=== PATIENT | male | born 1995 | race Hispanic/Latino ===

== ENCOUNTER 2016-09-20 23:16 | Emergency (ER) | payer OTHER ==
[2016-09-20 23:38] VITALS: BP 107/68; PULSE 80; RESP 16; TEMP 98.1; O2SAT 99
--- NOTE | 2016-09-21 00:04 | C.PDOC ---
History Of Present Illness 20 year old patient presents to the ED complaining of anxiety for the past couple of months. Patient reports he's had racing thoughts for the past few days. He is unable to sleep and is constantly feeling anxious. He is stressed out about work. Patient admits to marijuana use and recently he has been using it more. Patient denies suicidal ideation, homicidal ideation, other drug use, alcohol use, or depression. Patient was seen at [facility] [place] [facility] earlier today. He states he spoke to a few different people. He was discharged without any medication and instructed to follow up with out patient counseling. Patient is requesting medication to help his anxiety and for sleep. Time Seen by Provider: 09/20/16 23:51 Chief Complaint (Nursing): Psychiatric Evaluation History Per: Patient History/Exam Limitations: no limitations Onset/Duration Of Symptoms: Worse Since (few days), Other (couple of months) Current Symptoms Are (Timing): Still Present Suicide/Self Injury Attempted (Context): None Modifying Factor(s): Marijuana Severity: None Pain Scale Rating Of: 0 Associated Symptoms: Anxiety, Other (racing thoughts) Past Medical History Reviewed: Historical Data, Nursing Documentation, Vital Signs Vital Signs: Last Vital Signs Temp 98.1 F 09/20/16 23:31 Pulse 80 09/20/16 23:31 Resp 16 09/20/16 23:31 BP 107/68 09/20/16 23:31 Pulse Ox 99 09/21/16 01:48 Family History: States: Unknown Family Hx - Social History Hx Alcohol Use: Yes Hx Substance Use: Yes - Immunization History Hx Influenza Vaccination: No Hx Pneumococcal Vaccination: No Review Of Systems Except As Marked, All Systems Reviewed And Found Negative. Psych: Positive for: Anxiety. Negative for: Depression, Suicidal ideation, Other (homicidal ideation) Physical Exam - Physical Exam Appears: Agitated, Other (anxious, pacing around) Skin: Warm, Dry Head: Atraumatic, Normacephalic Neck: Normal ROM, Supple Chest: Symmetrical Cardiovascular: Rhythm Regular Respiratory: Normal Breath Sounds, No Rales, No Rhonchi, No Wheezing Neurological/Psych: Oriented x3 Gait: Steady ED Course And Treatment O2 Sat by Pulse Oximetry: 99 (room air) Pulse Ox Interpretation: Normal Medical Decision Making Medical Decision Making: Impression: 20 y/o male with anxiety Plan: * Atarax Progress: Crisis evaluation was offered, but patient refused. Advise patient to follow up with outpatient psych and may need medications or group therapy. Patient has family at bedside and is stable for discharge Disposition Counseled Patient/Family Regarding: Diagnosis, Need For Followup, Rx Given - Disposition Disposition: HOME/ ROUTINE Disposition Time: 00:03 Condition: STABLE Additional Instructions: You can take medication 1-2 pills every 6 hours as needed Please [facility] with [facility] at [address] [place] [address]. Please call [phone] or ext [phone] to arrange appointment. 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 - Scribe Statement The provider has reviewed the documentation as recorded by the Scribe Flavia Barfield All medical record entries made by the Scribe were at my direction and personally dictated by me. I have reviewed the chart and agree that the record accurately reflects my personal performance of the history, physical exam, medical decision making, and the department course for this patient. I have also personally directed, reviewed, and agree with the discharge instructions and disposition.
== END 2016-09-21 00:15 | disposition home or self-care (01) ==
LOC: C.ER 23:16
DX: F41.9 Anxiety disorder, unspecified (principal)